=== PATIENT | female | born 1985 | race Caucasian/White ===

== ENCOUNTER 2016-11-17 19:26 | Emergency (ER) | payer OTHER ==
[2016-11-17 19:54] VITALS: RESP 18
[2016-11-17] MEDS ORDERED: IBUPROFEN 600 MG TAB PO ONE (19:55)
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
[2016-11-17] MEDS ORDERED: traMADol 50 MG TAB PO ONE (21:18)
[2016-11-17 22:02] VITALS: BP 128/65; PULSE 60; TEMP 97.9; O2SAT 96
== END 2016-11-17 22:02 | disposition home or self-care (01) ==
DX: S30.0XXA Contusion of lower back and pelvis, initial encounter (principal); K59.00 Constipation, unspecified; V18.4XXA Pedal cycle driver injured in noncollision transport accident in traffic accident, initial encounter; Y99.8 Other external cause status; Y93.55 Activity, bike riding

== ENCOUNTER → 2017-12-04 | Outpatient (CLI) | payer OTHER | LOC: FIMAGING 09:33 | PROVIDERS: ATTEND Obstetrics & Gynecology | DX: O30.041 Twin pregnancy, dichorionic/diamniotic, first trimester (principal); Z3A.12 12 weeks gestation of pregnancy ==